=== PATIENT | female | born 1990 | race Caucasian/White ===

== ENCOUNTER → 2017-12-19 | Outpatient (REF) | payer OTHER ==
[2017-12-19 14:12] LABS: CHLAMYDIA DNA AMPLIFICATION NEGATIVE (NEGATIVE); GC DNA AMPLIFICATION NEGATIVE (NEGATIVE)
== END ==
LOC: M SFHCWAGY 09:22
DX: Z12.4 Encounter for screening for malignant neoplasm of cervix (principal); R87.628 Other abnormal cytological findings on specimens from vagina